=== PATIENT | female | born 1980 | race Caucasian/White ===

== ENCOUNTER 2017-12-29 13:27 | Emergency (ER) | payer MEDICAID ==
[2017-12-29] MEDS: IBUPROFEN 600 MG TAB PO (14:23)
== END 2017-12-29 15:30 | disposition home or self-care (01) ==
LOC: FTE 13:27
DX: R51 Headache (principal); R40.2412 Glasgow coma scale score 13-15, at arrival to emergency department
CPT/HCPCS: 99282; Z7502

== ENCOUNTER 2018-07-19 23:38 | Emergency (ER) | payer MEDICAID ==
[2018-07-20] MEDS: IBUPROFEN 800 MG TAB PO (03:48)
[2018-07-20] MEDS: GUAIFENESIN/DM 5ML CUP PO (03:49)
== END 2018-07-20 04:30 | disposition home or self-care (01) ==
LOC: FTE 23:38
DX: J40 Bronchitis, not specified as acute or chronic (principal)
CPT/HCPCS: 99283; Z7502